=== PATIENT | female | born 1955 | race Caucasian/White ===

== ENCOUNTER 2024-09-25 13:37 | Inpatient (IN) | payer OTHER, MEDICARE, MEDICAID ==
[~2024-09-25] VITALS: Ht 167.6 cm; Wt 89.0 kg
[2024-09-25 13:59] LABS: ABG HCO3 26.1 mmol/L (21.0-28.0); ABG OXYGEN SATURATION 90.9 % (94.0-98.0); ABG PCO2 (T) 47.6 mmHg (32.0-45.0); ABG PH (T) 7.357 (7.350-7.450); ABG PO2 (T) 59.4 mmHg (83.0-108.0); ALLEN'S TEST POSITIVE; FHHb 8.8 % (0.0-5.0); FO2Hb 88.2 % (94.0-98.0); MODE ROOM AIR; PATIENT TEMPERATURE 37.1; TOTAL HEMOGLOBIN 16.4 G/dl (12.0-16.0)
[2024-09-25] MEDS: normal saline 500ml IV soln 500 ML IV STA (15:20)
[2024-09-25 15:40] LABS: BASOPHILS % (AUTO) 0.4 % (0-1); EOSINOPHILS # (AUTO) 0.2 X10'3 (0-0.9); EOSINOPHILS % (AUTO) 1.5 % (0-6); HEMATOCRIT 45.6 % (35.0-45.0); HEMOGLOBIN 15.2 g/dl (12.0-16.0); LYMPHOCYTES # (AUTO) 2.4 X10'3 (1.1-4.8); LYMPHOCYTES % (AUTO) 22.5 % (21-51); MEAN CORPUSCULAR HGB CONC 33.4 g/dL (33.0-36.5); MEAN CORPUSCULAR VOLUME 92.9 FL (78-98); MEAN PLATELET VOLUME 8.3 FL (7.4-10.4); MONOCYTES # (AUTO) 0.7 X10'3 (0-0.9); MONOCYTES % (AUTO) 6.3 % (2-12); NEUTROPHILS # (AUTO) 7.4 X10'3 (1.8-7.7); NEUTROPHILS % (AUTO) 69.3 % (42-75); PLATELET COUNT 206 X10'3 (140-440); RED BLOOD COUNT 4.91 X10'6 (4.20-5.60); RED CELL DISTRIBUTION WIDTH 14.5 % (11.5-14.5); WHITE BLOOD COUNT 10.7 X10'3 (4.5-11.0)
[2024-09-25 15:42] LABS: APTT 26 SECONDS (22-32); INR 1.1 INR; PROTHROMBIN TIME 11.2 SECONDS (9.0-12.0)
[2024-09-25 15:50] LABS: ALBUMIN 3.3 G/DL (3.4-5.0); ANION GAP 7 (8-16); BLOOD UREA NITROGEN 15 MG/DL (7-18); BUN/CREATININE RATIO 18.3 (10.0-20.0); CALCIUM 8.9 MG/DL (8.5-10.1); CHLORIDE 106 MMOL/L (99-107); CREATININE 0.82 MG/DL (0.40-0.90); GLUCOSE 113 MG/DL (70-104); LIPASE 16 U/L (16-77); MAGNESIUM 1.7 MG/DL (1.5-2.4); POTASSIUM 4.4 MMOL/L (3.5-5.1); SODIUM 143 MMOL/L (135-145); TOTAL CARBON DIOXIDE 29.8 MMOL/L (24-32); eCRCL 59 ML/MIN; eGFR 69 ML/MIN
[2024-09-25 16:00] LABS: ETHANOL < 10 MG/DL (<10)
[2024-09-25 16:22] LABS: BILIRUBIN,URINE NEGATIVE (Neg); CLARITY,URINE CLEAR (Clear); COLOR,URINE YELLOW (Yellow); GLUCOSE, URINE >=1000 mg/dl (Neg); KETONES,URINE NEGATIVE (Neg); LEUKOCYTE ESTERASE ,URINE NEGATIVE (Neg); NITRITES, URINE NEGATIVE (Neg); OCCULT BLOOD,URINE TRACE-INTACT (Neg); PROTEIN,URINE NEGATIVE (Neg); UROBILINOGEN,URINE 0.2 E.U/dL (0.2-1.0)
[2024-09-25] MEDS: normal saline 500ml IV soln 500 ML IV ONE (16:24)
[2024-09-25 16:27] LABS: UA COLLECTION TYPE CLN CATCH MIDSTREAM
[2024-09-25 16:28] LABS: BACTERIA,URINE NONE SEEN /HPF (Neg); HYALINE CASTS 0-3 /LPF (NEGATIVE); MUCUS STRANDS FEW /LPF (Neg); RBC,URINE 0-2 /HPF (0-2); SQUAMOUS EPITHELIAL CELL,UR FEW /LPF (FEW); WBC,URINE NONE SEEN /HPF (0-4)
[2024-09-25 16:32] LABS: URINE AMPHETAMINE SCREEN NEGATIVE (Neg); URINE BARBITUATE SCREEN NEGATIVE (Neg); URINE BENZODIAZEPINES SCREEN NEGATIVE (Neg); URINE CANNABINOID SCREEN NEGATIVE (Neg); URINE COCAINE SCREEN NEGATIVE (Neg); URINE METHADONE SCREEN NEGATIVE (Neg); URINE OPIATE SCREEN NEGATIVE (Neg); URINE PHENCYCLIDINE SCREEN NEGATIVE (Neg)
[2024-09-25] MEDS: methylPREDNISolone sod succ 125mg/2ml vial IV ONE (16:56)
[2024-09-25] MEDS: ipratropium/albuterol 3ml nebule NEB ONE (17:05)
[2024-09-25 17:06] VITALS: PULSE 59; RESP 18; O2SAT 98
[2024-09-25] MEDS ORDERED: magnesium Cl slow-release 64mg tablet PO PRN (17:15)
[2024-09-25] MEDS ORDERED: potassium Cl 40MEQ/1/2NS 520ml 520 ML IV PRN (17:15)
[2024-09-25] MEDS ORDERED: BUPR450T5 PO (17:15)
[2024-09-25] MEDS ORDERED: ALBU2.5V10 NEB (17:15)
[2024-09-25] MEDS ORDERED: ISOS60TA71 PO (17:15)
[2024-09-25] MEDS ORDERED: ROSU40TA89 PO (17:15)
[2024-09-25] MEDS ORDERED: HYDR-3686 PO (17:15)
[2024-09-25] MEDS ORDERED: TORS20TA3 PO (17:15)
[2024-09-25] MEDS ORDERED: magnesium sulf-water 2g/50mL 50 ML IV PRN (17:15)
[2024-09-25] MEDS ORDERED: acetaminophen 325mg tablet PO PRN (17:15)
[2024-09-25] MEDS ORDERED: magnesium sulf-water 4G/100mL 100 ML IV PRN (17:15)
[2024-09-25] MEDS ORDERED: PRAM1.5T7 PO (17:15)
[2024-09-25] MEDS ORDERED: potassium Cl 20 mEq SR tablet PO PRN ×2 (17:15)
[2024-09-25] MEDS ORDERED: PREG75CA76 PO (17:15)
[2024-09-25] MEDS ORDERED: LEVO50TA PO (17:15)
[2024-09-25] MEDS ORDERED: BACL10TA2 PO (17:15)
[2024-09-25] MEDS ORDERED: ondansetron/PF 4mg/2ml inj IV PRN (17:15)
[2024-09-25] MEDS ORDERED: ASPI81TA52 PO (17:16)
[2024-09-25] MEDS ORDERED: BUDE10.7 INH (17:16)
[2024-09-25] MEDS ORDERED: EMPA25TA PO (17:17)
[2024-09-25] MEDS ORDERED: RANO500T6 PO (17:18)
[2024-09-25] MEDS ORDERED: METF-900 PO (17:18)
[2024-09-25] MEDS ORDERED: TORS10TA17 PO (17:18)
[2024-09-25] MEDS ORDERED: OMEP40CA21 PO (17:18)
[2024-09-25 17:19] VITALS: PULSE 61; RESP 16; O2SAT 96
[2024-09-25] MEDS ORDERED: TRAZ-256 PO (17:19)
[2024-09-25] MEDS ORDERED: VORT10TA PO (17:21)
[2024-09-25] MEDS ORDERED: trintellix PO (17:21)
[2024-09-25] MEDS ORDERED: AMIT75TA2 PO (17:21)
[2024-09-25] MEDS ORDERED: MIRT-138 PO (17:22)
[2024-09-25] MEDS ORDERED: SEMA1PEN3 SUBCUT (17:22)
[2024-09-25] MEDS: normal saline 1000ml 1,000 ML IV SCH (17:27)
[2024-09-25] MEDS ORDERED: dextrose 50%-water 50ml dispensing syringe IV PRN ×2 (17:30)
[2024-09-25] MEDS ORDERED: DEXTROSE 15 GM of carb/4 tabs (each vial/BOTTLE has 4 tablets) PO PRN ×2 (17:30)
[2024-09-25] MEDS ORDERED: glucagon, human recombinant 1mg kit SUBCUT PRN (17:30)
[2024-09-25] MEDS: CefTRIAXone 2gm/D5W 50ml BAG 50 ML IV ONE (17:46)
[2024-09-25] MEDS ORDERED: CLOP75TA34 PO (17:50)
[2024-09-25 18:03] LABS: ALANINE AMINOTRANSFERASE 17 U/L (12-78); ALBUMIN 3.1 G/DL (3.4-5.0); ALKALINE PHOSPHATASE 71 IU/L (46-116); ASPARTATE AMINO TRANSFERASE 13 U/L (10-37); BILIRUBIN,DIRECT 0.1 MG/DL (0-0.3); BILIRUBIN,TOTAL 0.4 MG/DL (0.1-1.0); CREATINE KINASE 68 U/L (26-192); CREATINE KINASE MB 2.1 ng/ml (0.3-3.6); PRO BRAIN NATRIURETIC PEPTIDE 239 PG/ML (0-125); SALICYLATE 3.7 MG/DL (4.0-20.0); TOTAL PROTEIN 6.1 G/DL (6.4-8.2)
[2024-09-25 18:05] LABS: ACETAMINOPHEN < 2.0 UG/ML (10-30)
[2024-09-25] MEDS: nicotine 14mg patch - 24hr TD SCH (18:14)
[2024-09-25] MEDS ORDERED: morphine 2 MG/ML inj. syringe IV PRN (18:25)
[2024-09-25] MEDS: heparin, porcine 5000 units/ml vial SQ SCH (20:26)
[2024-09-25] MEDS: methylPREDNISolone sod succ/PF 40mg inj. IV SCH (20:26)
[2024-09-25] MEDS: albuterol 2.5 MG/3 ML nebule NEB SCH (20:41)
[2024-09-25 20:42] VITALS: PULSE 68; RESP 18; O2SAT 94
[2024-09-25 20:48] VITALS: PULSE 69; RESP 18
[2024-09-25 20:55] VITALS: BP 125/59; PULSE 67; RESP 18; TEMP 97.6; O2SAT 94
[2024-09-25] MEDS: INSULIN LISPRO 100 UNIT/ML INSULN.PEN MULTI-DOSE SQ SCH (22:46)
[2024-09-25] MEDS: acetaminophen 325mg tablet PO SCH (23:23)
[2024-09-26] VITALS (14 sets, daily range): BP systolic 117–139; BP diastolic 55–69; PULSE 68–99; RESP 16–21; TEMP 97.1–98.9; O2SAT 90–96
[2024-09-26 06:05] LABS: BASOPHILS % (AUTO) 0.1 % (0-1); EOSINOPHILS % (AUTO) 0 % (0-6); HEMATOCRIT 48.8 % (35.0-45.0); HEMOGLOBIN 16.2 g/dl (12.0-16.0); MEAN CORPUSCULAR HGB CONC 33.3 g/dL (33.0-36.5); MEAN CORPUSCULAR VOLUME 93.2 FL (78-98); MEAN PLATELET VOLUME 8.4 FL (7.4-10.4); MONOCYTES # (AUTO) 0.1 X10'3 (0-0.9); MONOCYTES % (AUTO) 0.7 % (2-12); NEUTROPHILS % (AUTO) 87.2 % (42-75); PLATELET COUNT 214 X10'3 (140-440); RED BLOOD COUNT 5.23 X10'6 (4.20-5.60); RED CELL DISTRIBUTION WIDTH 14.6 % (11.5-14.5); WHITE BLOOD COUNT 8.1 X10'3 (4.5-11.0)
[2024-09-26 06:07] LABS: ALBUMIN 3.3 G/DL (3.4-5.0); ANION GAP 9 (8-16); BLOOD UREA NITROGEN 23 MG/DL (7-18); BUN/CREATININE RATIO 26.4 (10.0-20.0); CALCIUM 8.9 MG/DL (8.5-10.1); CHLORIDE 104 MMOL/L (99-107); CREATININE 0.87 MG/DL (0.40-0.90); GLUCOSE 184 MG/DL (70-104); POTASSIUM 4.2 MMOL/L (3.5-5.1); SODIUM 142 MMOL/L (135-145); TOTAL CARBON DIOXIDE 28.6 MMOL/L (24-32); eCRCL 56 ML/MIN; eGFR 64 ML/MIN
[2024-09-26 06:36] LABS: HEMOGLOBIN A1C 7.5 % (4.5-6.2)
[2024-09-26] MEDS: pregabalin 75mg capsule PO SCH (21:01)
[2024-09-26] MEDS: metFORMIN 500mg tablet PO SCH (21:01)
[2024-09-26] MEDS: mirtazapine 15mg tablet PO SCH (21:02)
[2024-09-26] MEDS: ranolazine 500mg SR tablet (Q12H) PO SCH (21:45)
[2024-09-26] MEDS: insulin glargine (Lantus) pen - multi-dose SQ SCH (22:17)
[2024-09-27] MEDS: HYDROcodone/acetaminophen 5mg/325mg tablet PO PRN (00:55)
[2024-09-27 03:06] VITALS: PULSE 64; RESP 18; O2SAT 94
[2024-09-27 03:16] VITALS: PULSE 62; RESP 18
[2024-09-27 06:00] VITALS: BP 139/59; PULSE 64; RESP 18; TEMP 97.7; O2SAT 96
[2024-09-27 06:06] LABS: BASOPHILS % (AUTO) 0.4 % (0-1); EOSINOPHILS % (AUTO) 0 % (0-6); HEMATOCRIT 48.3 % (35.0-45.0); HEMOGLOBIN 15.8 g/dl (12.0-16.0); LYMPHOCYTES # (AUTO) 1.8 X10'3 (1.1-4.8); LYMPHOCYTES % (AUTO) 14.4 % (21-51); MEAN CORPUSCULAR HEMOGLOBIN 30.4 PG (27.0-31.0); MEAN CORPUSCULAR HGB CONC 32.8 g/dL (33.0-36.5); MEAN CORPUSCULAR VOLUME 92.7 FL (78-98); MEAN PLATELET VOLUME 8.2 FL (7.4-10.4); MONOCYTES # (AUTO) 0.9 X10'3 (0-0.9); MONOCYTES % (AUTO) 7.1 % (2-12); NEUTROPHILS % (AUTO) 78.1 % (42-75); PLATELET COUNT 210 X10'3 (140-440); RED CELL DISTRIBUTION WIDTH 14.9 % (11.5-14.5); WHITE BLOOD COUNT 12.8 X10'3 (4.5-11.0)
[2024-09-27 06:19] LABS: ALBUMIN 3.4 G/DL (3.4-5.0); ANION GAP 6 (8-16); BLOOD UREA NITROGEN 28 MG/DL (7-18); BUN/CREATININE RATIO 37.3 (10.0-20.0); CALCIUM 9.4 MG/DL (8.5-10.1); CHLORIDE 107 MMOL/L (99-107); CREATININE 0.75 MG/DL (0.40-0.90); GLUCOSE 181 MG/DL (70-104); SODIUM 144 MMOL/L (135-145); TOTAL CARBON DIOXIDE 31.3 MMOL/L (24-32); eCRCL 64 ML/MIN; eGFR 76 ML/MIN
[2024-09-27] MEDS: albuterol 2.5 MG/3 ML nebule NEB SCH (07:36)
[2024-09-27 07:37] VITALS: PULSE 59; PULSE 60; RESP 18; O2SAT 98
[2024-09-27 08:00] VITALS: RESP 17; O2SAT 95
[2024-09-27] MEDS ORDERED: TORSEMIDE 10 MG PO SCH (08:00)
[2024-09-27] MEDS ORDERED: vortioxetine HBr tablet 10 MG TABLET PO SCH (08:00)
[2024-09-27] MEDS: clopidogrel 75mg tablet PO SCH (08:49)
[2024-09-27] MEDS: aspirin 81mg, enteric-coated 1 TAB TABLET.DR PO SCH (08:49)
[2024-09-27] MEDS: buPROPion SR 150mg tablet PO SCH (08:50)
[2024-09-27] MEDS: levoTHYROXINE 25mcg tablet PO SCH (08:50)
[2024-09-27] MEDS: atorvastatin 20mg tablet PO SCH (08:50)
[2024-09-27] MEDS: EMPAGLIFLOZIN 25 MG TABLET PO SCH (08:51)
[2024-09-27] MEDS: isosorbide mononitrate 30mg tab.SR.24H PO SCH (08:51)
[2024-09-27] MEDS: pantoprazole 40mg Tablet.DR PO SCH (08:51)
[2024-09-27] MEDS: methylPREDNISolone sod succ/PF 40mg inj. IV SCH (09:02)
[2024-09-27] MEDS: azithromycin/NS 500mg/250ml 250 ML IV SCH (10:12)
[2024-09-27] MEDS ORDERED: AZIT250T81 PO (11:21)
[2024-09-27] MEDS ORDERED: FLUT1DIS4 INH (11:21)
[2024-09-27] MEDS ORDERED: METH4TAB81 PO (11:21)
[2024-09-27] MEDS ORDERED: ALBU18HF2 INH (11:21)
== END 2024-09-27 14:03 | disposition home health service (06) | DRG 189 ==
LOC: ER 13:38 → ED HOLD 17:54 → ORTHO 4S 21:16
PROVIDERS: ADMIT Internal Medicine; ATTEND Internal Medicine
DX: J96.02 Acute respiratory failure with hypercapnia (principal); G93.41 Metabolic encephalopathy; J44.1 Chronic obstructive pulmonary disease with (acute) exacerbation; J96.01 Acute respiratory failure with hypoxia; E11.9 Type 2 diabetes mellitus without complications; G89.4 Chronic pain syndrome; Z66 Do not resuscitate; I25.10 Atherosclerotic heart disease of native coronary artery without angina pectoris; M54.9 Dorsalgia, unspecified; E78.5 Hyperlipidemia, unspecified; F32.A Depression, unspecified; G47.00 Insomnia, unspecified; E66.811 Obesity, class 1; Z68.31 Body mass index [BMI] 31.0-31.9, adult; I25.2 Old myocardial infarction; Z79.02 Long term (current) use of antithrombotics/antiplatelets; Z79.51 Long term (current) use of inhaled steroids; Z79.82 Long term (current) use of aspirin; Z79.84 Long term (current) use of oral hypoglycemic drugs; Z79.85 Long-term (current) use of injectable non-insulin antidiabetic drugs; Z79.899 Other long term (current) drug therapy; Z95.1 Presence of aortocoronary bypass graft
CPT/HCPCS: 36415; 36600; 70450; 71045; 80048; 80076; 80305; 80320; 80329; 81001; 82140; 82550; 82553; 82803; 82948; 83036; 83605; 83690; 83735; 83874; 83880; 84145; 84484; 85018; 85025; 85610; 85651; 85730; 87040; 87081; 93005; 93306; 94640; 94760; 96361; 96374; 96375; 97116; 97161; 97530; 99291; A4615; G0378; J0456; J0696; J1644; J1815; J2919; J7030; J7040

== ENCOUNTER 2025-01-24 12:37 | Emergency (ER) | payer OTHER, MEDICARE, MEDICAID ==
[~2025-01-24] VITALS: Ht 167.6 cm; Wt 79.5 kg
[~2025-01-24 12:37] MED LIST: ALBU18HF2 INH; AMIT75TA2 PO; ASPI81TA52 PO; AZIT250T81 PO; BACL10TA2 PO; BUDE10.7 INH; BUPR450T5 PO; CLOP75TA34 PO; EMPA25TA PO; FLUT1DIS4 INH; HYDR-3686 PO; ISOS60TA71 PO; LEVO50TA PO; METF-900 PO; METH4TAB81 PO; MIRT-138 PO; OMEP40CA21 PO; PRAM1.5T7 PO; PREG75CA76 PO; RANO500T6 PO; ROSU40TA89 PO; SEMA1PEN3 SUBCUT; TORS10TA17 PO; TRAZ-256 PO; VORT10TA PO
--- NOTE | 2025-01-24 14:27 | Physician Documentation ---
History of Present Illness ~ Chief Complaint: Leg Laceration Stated Complaint: LAC ON LEG Time Seen by MD: 14:14 Mode of Arrival: EMS HPI Patient is seen today with complaints of a skin tear or laceration to her right lower leg anteriorly. Patient states she simply tripped and fell just earlier today few hours ago and came in because of concern for infection risk. Patient denies any head strike or loss of consciousness and denies any headache or chest pain or shortness of breath or abdominal pain or nausea, vomiting, diarrhea. Patient has no other concern or complaint at this time. Patient does admit to chronic skin changes of her bilateral lower extremities Tetanus Within 5 Years: Yes Medication Reconciliation Allergies: Coded Allergies: lisinopril (Unverified Allergy, Unknown, 01/24/25) Scheduled Amitriptyline HCl (Amitriptyline HCl), 1 TAB PO HS, (Reported) Aspirin (Aspirin EC), 1 TAB PO DAILY, (Reported) Azithromycin (Azithromycin), 1 TAB PO DAILY Bupropion HCl (Bupropion Xl), 1 TAB PO QAM, (Reported) Clopidogrel Bisulfate (Clopidogrel), 1 TAB PO DAILY, (Reported) Empagliflozin (Jardiance), 1 TAB PO DAILY, (Reported) Fluticasone/Salmeterol (Advair 250-50 Diskus), 1 PUFFS INH Q12H Isosorbide Mononitrate (Isosorbide Mononitrate Er), 1 TAB PO DAILY, (Reported) Levothyroxine Sodium (Synthroid), 1 TAB PO QAM, (Reported) Metformin Hcl* (Metformin ER*), 1 TAB PO Q12H, (Reported) Methylprednisolone (Medrol Dosepak), 0 PO UD Mirtazapine (Remeron), 0.5 TAB PO HS, (Reported) Omeprazole (Prilosec), 1 CAP PO QAM, (Reported) Pramipexole Di-Hcl (Pramipexole Dihydrochloride), 1 TAB PO TID, (Reported) Pregabalin (Pregabalin), 1 CAP PO BID, (Reported) Ranolazine (Ranolazine ER), 1 TAB PO Q12H, (Reported) Rosuvastatin Calcium (Rosuvastatin Calcium), 1 TAB PO DAILY, (Reported) Semaglutide (Ozempic), 1 MG SUBCUT Q7D, (Reported) Torsemide (Torsemide), 1 TAB PO DAILY, (Reported) Trazodone HCl (Trazodone HCl), 150 MG PO HS, (Reported) Vortioxetine Hydrobromide (Brintellix), 1 TAB PO DAILY, (Reported) Scheduled PRN Albuterol Sulfate (Ventolin Hfa), 2 PUFFS INH Q4HPRN PRN for wheezing Baclofen (Baclofen), 1 TAB PO HS PRN for sleep, (Reported) Budesonide/Glycopyr/Formoterol (Breztri Aerosphere Inhaler), 2 PUFFS INH Q12H PRN for SOB or wheezing, (Reported) Hydroxyzine Hcl* (Atarax*), 1-2 TAB PO BID PRN for anxiety, (Reported) Past Medical History Past Medical History: Coronary Artery Disease, Myocardial Infarction, COPD, Diabetes, Chronic Back Pain Past Surgical History: coronary bypass surgery, orthopedic surgeries Review of Systems Constitutional: Denies: chills, fever, weakness Eyes: Denies: pain, blurred vision ENT: Denies: ear pain, nose pain, throat pain, mouth pain Respiratory: Denies: cough, shortness of breath Cardiovascular: Denies: chest pain, palpitations Gastrointestinal: Denies: abdominal pain, nausea, vomiting Genitourinary: Denies: burning, dysuria Female Genitalia: Denies: vaginal discharge, pelvic pain Neurological: Denies: headache, dizziness Musculoskeletal: Denies: pain, swelling Integumentary: Denies: rash, lesions Allergic/Immunologic: Denies: hives, itching Hematologic/Lymphatic: Denies: no symptoms reported Psychiatric: Denies: depression, anxiety Physical Exam Vital Signs: Temperature: 97.0, Heart Rate: 71, Respiratory Rate: 18, BP: 115/54, Pulse Oximetry: 93, Weight: 79.500 Physical Exam General: Awake and Alert, no acute distress. HEENT: Conjunctiva pink, Sclera clear, Mucus Membranes moist. Neck: Supple without masses and tenderness. Resp: Unlabored. Lungs clear to auscultation bilaterally. Heart: Regular Rate and rhythm, normal S1 and S2 without murmur, rub or gallop. Extremities: No cyanosis,clubbing or edema. Skin: Patient on exam does have 7 cm skin tear/laceration to her right lower leg anteriorly with minimal active bleeding. Progress Results/Orders Results/Orders Completed Orders - ANSLEY JOHNSTON Lidocaine 1% 30ml Vial (Xylocaine 1% Via (01/24/25 14:24) Vital Signs 01/24/25 12:39 Temp 97.0 Pulse 71 Resp 18 B/P (MAP) 115/54 Pulse Ox 93 Laboratory Tests Test 01/24/25 12:47 Glucometer 141 H Medical Decision Making Findings Patient is seen today with complaints of a skin tear or laceration to her right lower leg anteriorly. Patient states she simply tripped and fell just earlier today few hours ago and came in because of concern for infection risk. Patient denies any head strike or loss of consciousness and denies any headache or chest pain or shortness of breath or abdominal pain or nausea, vomiting, diarrhea. Patient has no other concern or complaint at this time. Patient does admit to chronic skin changes of her bilateral lower extremities Patient did have laceration/skin tear washed and cleansed today and Steri-Strips were used to achieve closure. Patient tolerated well. Patient will follow up with primary care in 3-5 days for re-evaluation of the skin tear and will perform daily dressing changes. Return to ED with any worsening, concerning or changing symptoms. Departure Disposition: HOME / SELF CARE / HOMELESS Impression: Primary Impression: Laceration Condition: Improved Discharge Instructions: Laceration Care, Adult Additional Instructions: Patient did have laceration/skin tear washed and cleansed today and Steri-Strips were used to achieve closure. Patient tolerated well. Patient will follow up with primary care in 3-5 days for re-evaluation of the skin tear and will perform daily dressing changes. Return to ED with any worsening, concerning or changing symptoms. Referrals: NO PRIMARY CARE PROVIDER (PCP) Signature Scribe Signature: No scribe Attestation: No scribe ANSLEY JOHNSTON Jan 24, 2025 14:27
[2025-01-24] MEDS: LIDOcaine 1% 30ml preserv. free vial IJ STA (14:37)
[2025-01-24 16:09] VITALS: BP 141/60; PULSE 59; RESP 18; TEMP 98; O2SAT 96
== END 2025-01-24 16:10 | disposition home or self-care (01) ==
LOC: ER 12:38
DX: S81.811A Laceration without foreign body, right lower leg, initial encounter (principal); E11.9 Type 2 diabetes mellitus without complications; I25.10 Atherosclerotic heart disease of native coronary artery without angina pectoris; I25.2 Old myocardial infarction; J44.9 Chronic obstructive pulmonary disease, unspecified; Z88.8 Allergy status to other drugs, medicaments and biological substances; Z95.1 Presence of aortocoronary bypass graft; W01.0XXA Fall on same level from slipping, tripping and stumbling without subsequent striking against object, initial encounter; Y93.89 Activity, other specified; Y92.89 Other specified places as the place of occurrence of the external cause; Y99.8 Other external cause status
CPT/HCPCS: 82948; 99284; A6222; A6258; A6446; A6449